=== PATIENT | male | born 1955 ===

== ENCOUNTER 2018-03-25 02:30 | Emergency (ER) | payer SELFPAY ==
[~2018-03-25] VITALS: Ht 185.4 cm; Wt 65.8 kg
[2018-03-25] MEDS ORDERED: NORVASC10 MG ORAL (02:54)
--- NOTE | 2018-03-25 02:54 | Emergency Room Report ---
History of Present Illness General Chief Complaint: Abdominal Pain Source: Patient, EMS Present Illness HPI This is a 62-year-old male with no significant past medical history. He called EMS from the street because he said he wanted a place to sleep. Afterward he said he went to go to the bathroom. When the home service consultant told him that the hospital is not a placement take sleeping use the bathroom, he said he has abdominal pain. No fever chills but no nausea no vomiting. Denies any suicidal thoughts or homicidal thought. On arrival, he said he is hungry and wanted something to eat. Patient History Past Medical History: see triage record, old chart reviewed, HTN, psych hx Past Surgical History: other Pertinent Family History: none Social History: Denies: smoking Immunizations: other Reviewed Nursing Documentation: PMH: Agreed; PSxH: Agreed Review of Systems Eye: Denies: eye pain, blurred vision ENT: Denies: ear pain, nose congestion, throat swelling Respiratory: Denies: cough, shortness of breath Cardiovascular: Denies: chest pain, palpitations Gastrointestinal: Reports: abdominal pain; Denies: diarrhea, nausea, vomiting Musculoskeletal: Denies: back pain, joint pain Skin: Denies: rash Neurological: Denies: headache, numbness Endocrine: Denies: increased thirst, increased urine Hematologic/Lymphatic: Denies: easy bruising All Other Systems: negative except mentioned in HPI Physical Exam Vital Signs Date Time Temp Pulse Resp B/P (MAP) Pulse Ox O2 Delivery O2 Flow Rate FiO2 03/25/18 02:46 99 18 159/118 98 Room Air vitals with high blood pressure Sp02 EP Interpretation: reviewed, normal General Appearance: well appearing, no apparent distress, alert Head: normocephalic, atraumatic Eyes: bilateral eye PERRL, bilateral eye EOMI ENT: hearing grossly normal, normal pharynx Neck: full range of motion, supple, no meningismus Respiratory: chest non-tender, lungs clear, normal breath sounds Cardiovascular #1: regular rate, rhythm, no murmur Gastrointestinal: normal bowel sounds, non tender, no mass, no organomegaly, no bruit, non-distended Musculoskeletal: back normal, gait/station normal, normal range of motion Psychiatric: mood/affect normal Skin: warm/dry Medical Decision Making Diagnostic Impression: Primary Impression: Abdominal pain Qualified Codes: R10.84 - Generalized abdominal pain Additional Impression: Hypertension Qualified Codes: I10 - Essential (primary) hypertension ER Course Patient complaint abdominal pain but ate without a problem. He doesn't remember his abdominal pain anymore when her question him later. He does have a history of high blood pressure but not on medication. We'll discharge with prescription for medication. Last Vital Signs Date Time Temp Pulse Resp B/P (MAP) Pulse Ox O2 Delivery O2 Flow Rate FiO2 03/25/18 02:46 99 18 159/118 98 Room Air Status: improved Disposition: HOME, SELF-CARE Condition: Stable Scripts Amlodipine Besylate (Norvasc) 10 Mg Tablet 10 MG ORAL DAILY, #30 TAB Prov: AGATA LYONS M.D. 03/25/18 Additional Instructions: Follow-up with your doctor in a week for recheck on your blood pressure. Return if symptom worsen. AGATA LYONS M.D. Mar 25, 2018 02:54
[2018-03-25 03:12] VITALS: BP 159/118
== END 2018-03-25 03:12 | disposition home or self-care (01) ==
LOC: EDBD 02:30 → EMR 02:45
DX: R10.9 Unspecified abdominal pain (principal); I10 Essential (primary) hypertension
CPT/HCPCS: 99283